=== PATIENT | female | born 1970 | race Caucasian/White ===

== ENCOUNTER → 2017-06-03 | Outpatient (CLI) | payer OTHER ==
[~2017-06-03] MED LIST: LOSARTAN POTASS50 MG PO
== END | disposition home or self-care (01) ==
LOC: MRI 09:15 → RAD 13:35
DX: S32.591D Other specified fracture of right pubis, subsequent encounter for fracture with routine healing (principal); M54.5 Low back pain

== ENCOUNTER → 2017-06-04 | Outpatient (CLI) | payer OTHER | END | disposition home or self-care (01) | LOC: MRI 07:28 | DX: S32.591D Other specified fracture of right pubis, subsequent encounter for fracture with routine healing (principal); M54.5 Low back pain | CPT/HCPCS: 72148 ==

== ENCOUNTER 2017-08-19 19:08 | Emergency (ER) | payer OTHER ==
[~2017-08-19] VITALS: Ht 152.4 cm; Wt 63.5 kg
[2017-08-19] MEDS ORDERED: PYCNOGENOL (19:40)
[2017-08-19] MEDS ORDERED: DEPO-PROVE150 MG/1 M (19:41)
== END 2017-08-19 22:25 | disposition home or self-care (01) ==
LOC: ER 19:08
DX: N93.8 Other specified abnormal uterine and vaginal bleeding (principal)

== ENCOUNTER 2017-08-29 08:28 | Outpatient (CLI) | payer OTHER ==
[~2017-08-29 08:28] MED LIST changes: +DEPO-PROVE150 MG/1 M; +PYCNOGENOL
== END 2017-08-29 08:31 | disposition home or self-care (01) ==
LOC: MAMO-SONO 08:28
DX: N64.4 Mastodynia (principal); R10.2 Pelvic and perineal pain; Z12.31 Encounter for screening mammogram for malignant neoplasm of breast

== ENCOUNTER 2018-03-16 20:53 | Emergency (ER) | payer OTHER ==
[~2018-03-16] VITALS: Ht 165.1 cm; Wt 67.1 kg
[2018-03-16] MEDS ORDERED: NORVASC2.5 M1 PO (21:41)
== END 2018-03-16 23:37 | disposition home or self-care (01) ==
LOC: EMR PED 20:53 → ER 20:57 → EMR PED 20:57 → ER 23:37
DX: S40.871A Other superficial bite of right upper arm, initial encounter (principal); W55.01XA Bitten by cat, initial encounter; Y93.89 Activity, other specified; Y92.89 Other specified places as the place of occurrence of the external cause; Y99.8 Other external cause status

== ENCOUNTER 2018-06-05 07:50 | Outpatient (CLI) | payer OTHER ==
[~2018-06-05 07:50] MED LIST changes: +NORVASC2.5 M1 PO
== END 2018-06-05 17:00 | disposition home or self-care (01) ==
LOC: MRI 07:50
DX: M54.5 Low back pain (principal)
CPT/HCPCS: 72148

== ENCOUNTER 2018-06-05 08:04 | Outpatient (CLI) | payer OTHER | END 2018-06-05 08:32 | disposition home or self-care (01) | LOC: LAB 08:04 | DX: N39.0 Urinary tract infection, site not specified (principal); D25.9 Leiomyoma of uterus, unspecified; D64.89 Other specified anemias; Z01.818 Encounter for other preprocedural examination; R79.89 Other specified abnormal findings of blood chemistry ==

== ENCOUNTER 2018-06-17 08:23 | Outpatient (CLI) | payer OTHER | END 2018-06-17 08:31 | disposition home or self-care (01) | LOC: LAB 08:23 | DX: D25.9 Leiomyoma of uterus, unspecified (principal); Z01.411 Encounter for gynecological examination (general) (routine) with abnormal findings ==

== ENCOUNTER 2018-12-04 10:23 | Outpatient (CLI) | payer OTHER | END 2018-12-04 10:41 | disposition home or self-care (01) | LOC: NUCLEAR 10:23 | DX: M81.0 Age-related osteoporosis without current pathological fracture (principal) ==

== ENCOUNTER 2018-12-05 10:31 | Outpatient (CLI) | payer OTHER | END 2018-12-05 10:47 | disposition home or self-care (01) | LOC: LAB 10:31 | DX: E55.9 Vitamin D deficiency, unspecified (principal); M85.88 Other specified disorders of bone density and structure, other site; E88.89 Other specified metabolic disorders; M81.8 Other osteoporosis without current pathological fracture; E56.1 Deficiency of vitamin K; M13.88 Other specified arthritis, other site ==

== ENCOUNTER 2019-12-21 09:42 | Outpatient (CLI) | payer OTHER | END 2019-12-21 10:31 | disposition home or self-care (01) | LOC: NUCLEAR 09:42 | PROVIDERS: ATTEND Internal Medicine Geriatric Medicine | DX: R55 Syncope and collapse (principal); I65.23 Occlusion and stenosis of bilateral carotid arteries; M16.0 Bilateral primary osteoarthritis of hip; M19.90 Unspecified osteoarthritis, unspecified site; I11.9 Hypertensive heart disease without heart failure ==

== ENCOUNTER → 2020-01-11 | Outpatient (CLI) | payer OTHER | END | disposition home or self-care (01) | LOC: MRI 09:53 | PROVIDERS: ATTEND Obstetrics & Gynecology Gynecologic Oncology | DX: D25.0 Submucous leiomyoma of uterus (principal); C54.1 Malignant neoplasm of endometrium; D25.9 Leiomyoma of uterus, unspecified; N92.0 Excessive and frequent menstruation with regular cycle; Z01.818 Encounter for other preprocedural examination | CPT/HCPCS: 72197 ==

== ENCOUNTER 2020-01-17 13:25 | Outpatient (CLI) | payer OTHER | END 2020-01-17 13:26 | disposition home or self-care (01) | LOC: NUCLEAR 13:25 | PROVIDERS: ATTEND Internal Medicine Geriatric Medicine | DX: R55 Syncope and collapse (principal) ==

== ENCOUNTER 2020-11-29 13:35 | Outpatient (CLI) | payer OTHER | END 2020-11-29 13:53 | disposition home or self-care (01) | LOC: MAMO-SONO 13:35 | PROVIDERS: ATTEND Obstetrics & Gynecology Gynecology | DX: N60.11 Diffuse cystic mastopathy of right breast (principal); N60.12 Diffuse cystic mastopathy of left breast; Z12.31 Encounter for screening mammogram for malignant neoplasm of breast; M17.12 Unilateral primary osteoarthritis, left knee; N64.4 Mastodynia ==

== ENCOUNTER 2021-06-30 10:27 | Outpatient (CLI) | payer OTHER | END 2021-06-30 10:54 | disposition home or self-care (01) | LOC: LAB 10:27 | DX: D64.9 Anemia, unspecified (principal); N39.0 Urinary tract infection, site not specified; E11.69 Type 2 diabetes mellitus with other specified complication; E03.9 Hypothyroidism, unspecified; E78.5 Hyperlipidemia, unspecified; E55.9 Vitamin D deficiency, unspecified; R80.9 Proteinuria, unspecified; R73.09 Other abnormal glucose ==

== ENCOUNTER 2021-10-22 09:25 | Outpatient (CLI) | payer OTHER | END 2021-10-22 10:00 | disposition home or self-care (01) | LOC: TOM 09:25 | PROVIDERS: ATTEND Physical Medicine & Rehabilitation | DX: I62.9 Nontraumatic intracranial hemorrhage, unspecified (principal) ==

== ENCOUNTER → 2022-12-13 | Outpatient (CLI) | payer OTHER | END | disposition home or self-care (01) | LOC: SONOGRAMA 10:46 | PROVIDERS: ATTEND Internal Medicine | DX: K76.0 Fatty (change of) liver, not elsewhere classified (principal) ==

== ENCOUNTER 2022-12-30 12:19 | Outpatient (CLI) | payer OTHER | END 2022-12-30 12:29 | disposition home or self-care (01) | LOC: MAMO-SONO 12:19 | PROVIDERS: ATTEND Internal Medicine | DX: Z12.31 Encounter for screening mammogram for malignant neoplasm of breast (principal); N63.0 Unspecified lump in unspecified breast ==

== ENCOUNTER 2023-03-21 10:25 | Outpatient (CLI) | payer OTHER | END 2023-03-21 13:08 | disposition home or self-care (01) | LOC: TOM 10:25 | PROVIDERS: ATTEND Otolaryngology Plastic Surgery within the Head & Neck | DX: G44.011 Episodic cluster headache, intractable (principal) ==

== ENCOUNTER 2023-12-03 11:05 | Outpatient (CLI) | payer OTHER | END 2023-12-03 11:20 | disposition home or self-care (01) | LOC: MRI 11:05 | PROVIDERS: ATTEND Physical Medicine & Rehabilitation | DX: M25.512 Pain in left shoulder (principal); M25.551 Pain in right hip; M54.59 Other low back pain; E03.9 Hypothyroidism, unspecified | CPT/HCPCS: 73221 ==

== ENCOUNTER 2023-12-13 11:01 | Emergency (ER) | payer OTHER ==
[~2023-12-13] VITALS: Ht 162.6 cm; Wt 64.4 kg
[2023-12-13 14:50] LABS: CALCIUM 9.8 mg/dL (8.5-10.1); CREATININE SERUM 0.74 mg/dL (0.55-1.02); GFR 82.41; POTASSIUM 4.24 mEq/L (3.5-5.1)
[2023-12-13 15:02] LABS: HEMATOCRIT 40.6 % (36.0-45.00); HEMOGLOBIN 14.2 g/dL (12.0-15.00); MEAN CELL VOLUME 95.4 fL (80.00-100.00); MEAN CORPUSCULAR HEMOGLOBIN 33.4 pg (27.00-32.0); PLATELET COUNT 348 K/uL (150-450); RED BLOOD COUNT 4.26 M/uL (4.00-6.00); RED CELL DISTRIBUTION WIDTH 12.4 % (11.5-14.5)
[2023-12-13 16:08] LABS: PH,URINE 5.5 (5.0-8.0); URINE APPEARANCE Clear; URINE BILIRRUBIN Negative (NEGATIVE); URINE BLOOD Negative; URINE COLOR Yellow; URINE GLUCOSE Negative (NEGATIVE); URINE KETONE Negative (NEGATIVE); URINE LEUKOCYTE Trace; URINE NITRATE Negative; URINE PROTEIN Negative (NEGATIVE); URINE UROBILINOGEN 0.2 E.U./dl
[2023-12-13 16:12] LABS: URINE BACTERIA 183.8 uL (0.0-1933); URINE EPITHELIAL CELLS 4.4 uL (0.0-38.8); URINE WBC 8.6 uL (0.0-23.2)
[2023-12-13 16:20] LABS: URINE CAST 0.15 uL (0.0-1.40); URINE RBC 1.8 uL (0.0-20.8)
== END 2023-12-13 18:21 | disposition home or self-care (01) ==
LOC: ER 11:03
PROVIDERS: General Practice
DX: R55 Syncope and collapse (principal)

== ENCOUNTER 2024-11-25 10:20 | Outpatient (CLI) | payer OTHER | END 2024-11-25 10:31 | disposition home or self-care (01) | LOC: MAMO-SONO 10:20 | PROVIDERS: ATTEND Internal Medicine Geriatric Medicine | DX: E04.1 Nontoxic single thyroid nodule (principal); Z12.31 Encounter for screening mammogram for malignant neoplasm of breast; C50.919 Malignant neoplasm of unspecified site of unspecified female breast; N63 Unspecified lump in breast; N64.4 Mastodynia; N60.12 Diffuse cystic mastopathy of left breast; N60.11 Diffuse cystic mastopathy of right breast ==